=== PATIENT | female | born 1945 | race Hispanic/Latino ===

== ENCOUNTER → 2017-06-05 | Outpatient (CLI) | payer OTHER | END | disposition home or self-care (01) | LOC: RAH 08:47 | PROVIDERS: ATTEND Internal Medicine | DX: Z12.31 Encounter for screening mammogram for malignant neoplasm of breast (principal) | CPT/HCPCS: 77067 ==

== ENCOUNTER → 2017-07-12 | Outpatient (CLI) | payer OTHER | END | disposition home or self-care (01) | LOC: RAH 07:52 | PROVIDERS: ATTEND Internal Medicine Gastroenterology | DX: R10.13 Epigastric pain (principal); Z90.49 Acquired absence of other specified parts of digestive tract | CPT/HCPCS: 76700 ==

== ENCOUNTER → 2018-02-13 | Outpatient (CLI) | payer OTHER | END | disposition home or self-care (01) | LOC: RAH 13:08 | PROVIDERS: ATTEND Family Medicine | DX: R92.8 Other abnormal and inconclusive findings on diagnostic imaging of breast (principal) | CPT/HCPCS: 76641; 77065 ==

== ENCOUNTER → 2018-04-03 | Outpatient (CLI) | payer OTHER | END | disposition home or self-care (01) | LOC: RAH 08:43 | PROVIDERS: ATTEND Internal Medicine Gastroenterology | DX: K76.89 Other specified diseases of liver (principal); Z90.49 Acquired absence of other specified parts of digestive tract | CPT/HCPCS: 76700 ==

== ENCOUNTER → 2018-06-09 | Outpatient (CLI) | payer OTHER | END | disposition home or self-care (01) | LOC: RAH 08:30 | PROVIDERS: ATTEND Family Medicine | DX: Z12.31 Encounter for screening mammogram for malignant neoplasm of breast (principal) | CPT/HCPCS: 77067 ==

== ENCOUNTER → 2018-07-14 | Outpatient (CLI) | payer OTHER | END | disposition home or self-care (01) | LOC: RAH 12:54 | PROVIDERS: ATTEND Urology | DX: R31.29 Other microscopic hematuria (principal); N32.89 Other specified disorders of bladder | CPT/HCPCS: 76770 ==

== ENCOUNTER 2019-06-07 20:28 | Emergency (ER) | payer OTHER | END 2019-06-07 21:55 | disposition home or self-care (01) | LOC: EDH 20:28 | DX: T14.8XXA Other injury of unspecified body region, initial encounter (principal); E78.5 Hyperlipidemia, unspecified; I10 Essential (primary) hypertension; Z90.49 Acquired absence of other specified parts of digestive tract; Z90.710 Acquired absence of both cervix and uterus; X58.XXXA Exposure to other specified factors, initial encounter; Y93.89 Activity, other specified; Y92.098 Other place in other non-institutional residence as the place of occurrence of the external cause; Y99.8 Other external cause status | CPT/HCPCS: 99281 ==

== ENCOUNTER → 2019-06-10 | Outpatient (CLI) | payer OTHER | END | disposition home or self-care (01) | LOC: RAH 08:17 | PROVIDERS: ATTEND Family Medicine | DX: Z12.31 Encounter for screening mammogram for malignant neoplasm of breast (principal) | CPT/HCPCS: 77067 ==

== ENCOUNTER 2020-03-19 14:05 | Observation (INO) | payer OTHER ==
[~2020-03-19] VITALS: Ht 160 cm; Wt 66.8 kg
[2020-03-19] MEDS ORDERED: ASPIRIN 325 MG TABLET ONE (14:46)
[2020-03-19 15:07] LABS: BASOPHILS % (AUTO) 0.6 % (0.0-5.0); EOSINOPHILS % (AUTO) 1.7 % (0.0-8.0); HEMATOCRIT 37.4 % (36-48); LYMPHOCYTES % (AUTO) 21.6 % (21.0-51.0); MEAN CORPUSCULAR HEMOGLOBIN 31.2 pg (27.0-33.0); MEAN CORPUSCULAR HGB CONC 34.8 g/dL (32.0-36.0); MEAN CORPUSCULAR VOLUME 89.7 fL (79-99); PLATELET COUNT (AUTO) 407 K/uL (130-400); RED BLOOD CELL COUNT(AUTO) 4.17 MIL/uL (4.00-5.50); RED CELL DISTRIBUTION WIDTH 13.2 % (11.0-15.5); WHITE BLOOD COUNT (AUTO) 7.1 K/uL (4.8-10.8)
[2020-03-19] MEDS ORDERED: NITROGLYCERIN 1GM/1 INCH PACKET TD ONE (15:13)
[2020-03-19 15:16] LABS: CREATININE 0.7 mg/dL (0.5-1.5); POTASSIUM 3.6 mmol/L (3.5-5.1)
[2020-03-19 15:18] LABS: INR 0.93 (0.85-1.15); PARTIAL THROMBOPLASTIN TIME 29.5 SEC (26.3-35.5); PROTHROMBIN TIME 10.1 SEC (9.6-11.6)
[2020-03-19 15:20] LABS: ALBUMIN 3.5 g/dL (3.5-5.0); BILIRUBIN,TOTAL 0.2 mg/dL (0.2-1.0)
[2020-03-19] MEDS ORDERED: NITROGLYCERIN 0.4 MG SL TAB SL PRN (18:00)
[2020-03-19] MEDS ORDERED: ACETAMINOPHEN 325 MG TAB PO PRN (18:00)
[2020-03-19] MEDS ORDERED: ONDANSETRON HCL 4 MG/2 ML VIAL IVP PRN (18:00)
[2020-03-19] MEDS ORDERED: ACETAMINOPHEN 325 MG TAB ONE (19:38)
--- NOTE | 2020-03-19 20:05 | NUR ---
ADMISSION ARRIVED TO ROOM 408 VIA STRETCHER WITH ER NURSE. PT AAOx4. DENIES CHEST PAIN OR DISCOMFORT. CALL LIGHT WITHIN REACH. RAILS UP x2. LIST OF MEDICATIONS PROVIDED.
[2020-03-19 20:20] VITALS: BP 152/80
[2020-03-19] MEDS ORDERED: MIRT15TA6 PO (21:01)
[2020-03-19] MEDS ORDERED: LOSA50TA64 PO (21:02)
[2020-03-19] MEDS ORDERED: ATOR40TA69 PO (21:03)
[2020-03-19] MEDS ORDERED: ESOM20CA31 PO (21:04)
[2020-03-19] MEDS ORDERED: FAMO20TA8 PO (21:05)
[2020-03-19] MEDS ORDERED: MULT-1258 PO (21:05)
[2020-03-19] MEDS ORDERED: METO10TA3 PO (21:07)
[2020-03-19] MEDS ORDERED: AMLO-258 PO (21:08)
[2020-03-20 00:01] VITALS: BP 114/64
[2020-03-20 04:10] VITALS: BP 112/64
[2020-03-20 06:06] LABS: HEMATOCRIT 34.5 % (36-48); MEAN CORPUSCULAR HEMOGLOBIN 30.7 pg (27.0-33.0); MEAN CORPUSCULAR HGB CONC 34.2 g/dL (32.0-36.0); MEAN CORPUSCULAR VOLUME 89.8 fL (79-99); RED BLOOD CELL COUNT(AUTO) 3.84 MIL/uL (4.00-5.50); RED CELL DISTRIBUTION WIDTH 13.3 % (11.0-15.5); WHITE BLOOD COUNT (AUTO) 5.2 K/uL (4.8-10.8)
[2020-03-20 06:21] LABS: CREATININE 0.7 mg/dL (0.5-1.5)
[2020-03-20 07:31] VITALS: BP 130/76
[2020-03-20] MEDS: ATORVASTATIN CALCIUM 40 MG TABLET PO SCH (08:34)
[2020-03-20] MEDS: MULTIVITAMIN WITH MINERALS TABLET PO SCH (08:34)
[2020-03-20] MEDS: LOSARTAN 50 MG TABLET PO SCH (08:34)
[2020-03-20] MEDS: AMLODIPINE BESYLATE 5 MG TAB PO SCH (08:34)
[2020-03-20] MEDS: FAMOTIDINE 20MG TAB 20 MG TAB PO SCH ×2 (08:35→20:57)
[2020-03-20] MEDS ORDERED: PANTOPRAZOLE SODIUM 40 MG TABLET.DR PO SCH (09:00)
[2020-03-20 11:53] VITALS: BP 132/71
[2020-03-20] MEDS: PANTOPRAZOLE SODIUM 40 MG TABLET.DR PO SCH ×2 (13:30→20:57)
[2020-03-20] MEDS ORDERED: FLUOXETINE HCL 10 MG CAPSULE PO SCH (14:30)
[2020-03-20 15:35] VITALS: BP 121/69
[2020-03-20] MEDS ORDERED: METOCLOPRAMIDE 10 MG TABLET PO SCH (17:00)
[2020-03-20 19:22] LABS: APPEARANCE,URINE SL CLOUDY (CLEAR); BILIRUBIN,URINE NEGATIVE (NEGATIVE); COLOR,URINE YELLOW (YELLOW); GLUCOSE, URINE (UA) NEGATIVE (NEGATIVE); KETONES,URINE NEGATIVE (NEGATIVE); LEUKOCYTE ESTERASE ,URINE NEGATIVE (NEGATIVE); NITRATE,URINE NEGATIVE (NEGATIVE); OCCULT BLOOD,URINE TRACE-INTACT (NEGATIVE); PH,URINE 7.5 (5.0-8.0); PROTEIN,URINE NEGATIVE (NEGATIVE); UROBILINOGEN,URINE 0.2 mg/dL (0.2-1.0)
[2020-03-20 20:00] VITALS: BP 126/71
[2020-03-20 20:08] LABS: BACTERIA,URINE Rare /HPF (None Seen); SQUAMOUS EPITHELIAL CELL,UR Rare /HPF (0-2); WBC,URINE 0-1 /HPF (0-1)
[2020-03-20 20:09] LABS: AMORPHOUS SEDIMENT,UR Few /LPF (None Seen)
[2020-03-20] MEDS ORDERED: MIRTAZAPINE 15 MG TABLET PO SCH (21:00)
[2020-03-21] VITALS: BP 120/63
[2020-03-21 03:27] VITALS: BP 121/69
[2020-03-21 07:30] VITALS: BP 129/82
[2020-03-21] MEDS: LOSARTAN 50 MG TABLET PO SCH (08:59)
[2020-03-21] MEDS: PANTOPRAZOLE SODIUM 40 MG TABLET.DR PO SCH (08:59)
[2020-03-21] MEDS: MULTIVITAMIN WITH MINERALS TABLET PO SCH (08:59)
[2020-03-21] MEDS: FAMOTIDINE 20MG TAB 20 MG TAB PO SCH (08:59)
[2020-03-21] MEDS ORDERED: ASPIRIN 81MG TAB.CHEW PO SCH (09:00)
[2020-03-21] MEDS ORDERED: FLUOXETINE HCL 10 MG CAPSULE PO SCH (09:00)
[2020-03-21] MEDS: AMLODIPINE BESYLATE 5 MG TAB PO SCH (09:00)
[2020-03-21] MEDS ORDERED: POLYETHYLENE GLYCOL 3350 17 GM POWD.PACK PO SCH (09:00)
[2020-03-21] MEDS: ATORVASTATIN CALCIUM 40 MG TABLET PO SCH (09:00)
[2020-03-21] MEDS ORDERED: NAPR-1113 PO (09:15)
[2020-03-21 11:00] VITALS: BP 134/76
[2020-03-21] MEDS ORDERED: IOHEXOL-350 75 ML VIAL IV ONE (11:05)
--- NOTE | 2020-03-21 13:39 | NUR ---
CHART REVIEWED, NOTE MADE OF COMMENT BY CARDIOLOGY THAT PATIENT MAY BE DISCHARGED HOME. WILL FOLLOW UP FOR DETAILED IA IF PATIENT STAYS FOR FURTHER TREATMENT. NO TRIGGERS TO CM, NO CONCERNS VOICED BY PATIENT OR NURSE Addendum: 03/21/20 at 1341 by AMMY KIDD RN CM Amended: Links added.
[2020-03-21] MEDS ORDERED: PANT40TA54 PO (15:25)
--- NOTE | 2020-03-21 16:00 | NUR ---
note DISCHARGE INSTRUCTIONS GIVEN TO PATIENT AT THIS TIME. VERBALIZED UNDERSTANDING. REFER TO DC SUMMARY FOR DETAILS. NO OTHER PROBLEMS VOICED AT THIS TIME. DENIES CHEST PAIN OR SOB. HAD CT CHEST WITH P.E. PROTOCOL NEGATIVE FOR P.E. BUT DID SHOW MODERATE HIATAL HERNIA. SHE WILL FOLLOW UP WITH PCP REGARDING THESE FINDINGS.
== END 2020-03-21 16:45 | disposition home or self-care (01) ==
LOC: EDH 14:05 → 4BH 17:19
PROVIDERS: ADMIT Internal Medicine Pulmonary Disease; ATTEND Internal Medicine Pulmonary Disease
DX: R07.89 Other chest pain (principal); I10 Essential (primary) hypertension; K44.9 Diaphragmatic hernia without obstruction or gangrene; K21.9 Gastro-esophageal reflux disease without esophagitis; F32.9 Major depressive disorder, single episode, unspecified; M94.0 Chondrocostal junction syndrome [Tietze]; E78.5 Hyperlipidemia, unspecified; E04.1 Nontoxic single thyroid nodule; I25.2 Old myocardial infarction; M79.7 Fibromyalgia; I25.10 Atherosclerotic heart disease of native coronary artery without angina pectoris; Z90.89 Acquired absence of other organs; Z90.710 Acquired absence of both cervix and uterus; Z88.8 Allergy status to other drugs, medicaments and biological substances; Z79.899 Other long term (current) drug therapy
CPT/HCPCS: 36415 ×3; 71045; 71275; 80048; 80053; 81001; 82550; 84443; 84484 ×3; 85025; 85027; 85378; 85610; 85730; 93005 ×2; 93306; 99285; G0378 ×8; Q9967

== ENCOUNTER 2021-09-15 07:13 | Emergency (ER) | payer OTHER ==
[~2021-09-15] VITALS: Ht 160 cm; Wt 68.5 kg
[~2021-09-15 07:13] MED LIST: AMLO-258 PO; LOSA50TA64 PO; METO10TA3 PO; MIRT-22 PO; MULT-1258 PO; NAPR-1113 PO; PANT40TA54 PO
[2021-09-15] MEDS ORDERED: ONDANSETRON 4MG INJ IVP SCH (07:30)
[2021-09-15] MEDS ORDERED: PANTOPRAZOLE 40 MG/VIAL IVP SCH (07:30)
[2021-09-15] MEDS ORDERED: PANTOPRAZOLE 40 MG/VIAL ONE (07:32)
[2021-09-15] MEDS ORDERED: ONDANSETRON 4MG INJ ONE (07:32)
[2021-09-15 07:42] LABS: BASOPHILS % (AUTO) 0.7 % (0.0-5.0); EOSINOPHILS % (AUTO) 3.4 % (0.0-8.0); HEMATOCRIT 36.7 % (36-48); LYMPHOCYTES % (AUTO) 29.1 % (21.0-51.0); MEAN CORPUSCULAR HEMOGLOBIN 32.1 pg (27.0-33.0); MEAN CORPUSCULAR HGB CONC 36.2 g/dL (32.0-36.0); MEAN CORPUSCULAR VOLUME 88.6 fL (79-99); NEUTROPHILS % (AUTO) 58.6 % (40.0-77.0); PLATELET COUNT (AUTO) 268 K/uL (130-400); RED BLOOD CELL COUNT(AUTO) 4.14 MIL/uL (4.00-5.50); RED CELL DISTRIBUTION WIDTH 12.8 % (11.0-15.5); WHITE BLOOD COUNT (AUTO) 4.4 K/uL (4.8-10.8)
[2021-09-15 07:46] LABS: ALBUMIN 3.4 g/dL (3.5-5.0); BILIRUBIN,TOTAL 0.4 mg/dL (0.2-1.0); CREATININE 0.7 mg/dL (0.5-1.5); POTASSIUM 4.2 mmol/L (3.5-5.1)
[2021-09-15 08:09] LABS: APPEARANCE,URINE CLEAR (CLEAR); BILIRUBIN,URINE NEGATIVE (NEGATIVE); COLOR,URINE YELLOW (YELLOW); GLUCOSE, URINE (UA) NEGATIVE (NEGATIVE); KETONES,URINE NEGATIVE (NEGATIVE); LEUKOCYTE ESTERASE ,URINE SMALL (NEGATIVE); NITRATE,URINE NEGATIVE (NEGATIVE); OCCULT BLOOD,URINE TRACE-INTACT (NEGATIVE); PROTEIN,URINE NEGATIVE (NEGATIVE); UROBILINOGEN,URINE 0.2 mg/dL (0.2-1.0)
[2021-09-15 08:19] LABS: B-TYPE NATRIURETIC PEPTIDE 9 pg/mL (0-100)
[2021-09-15 08:28] LABS: RBC,URINE 0-1 /HPF (0-1)
[2021-09-15 08:30] LABS: BACTERIA,URINE Few /HPF (None Seen); SQUAMOUS EPITHELIAL CELL,UR 0-2 /HPF (0-2); WBC,URINE 0-1 /HPF (0-1)
[2021-09-15] MEDS ORDERED: KETOROLAC 15MG/ML VIAL (15MG/ML) IV SCH (08:30)
[2021-09-15 08:57] VITALS: BP 108/57
[2021-09-15] MEDS ORDERED: NAPR-1196 PO (09:05)
[2021-09-15] MEDS ORDERED: FAMO20TA8 PO (09:05)
== END 2021-09-15 09:17 | disposition home or self-care (01) ==
LOC: EDH 07:13
DX: R07.89 Other chest pain (principal); I10 Essential (primary) hypertension; I25.2 Old myocardial infarction; Z79.899 Other long term (current) drug therapy; Z98.890 Other specified postprocedural states
CPT/HCPCS: 36415; 71045; 80053; 81001; 83880; 84484; 85025; 85378; 93005; 96374; 96375; 99285; C9113; J1885; J2405

== ENCOUNTER 2021-11-07 10:33 | Emergency (ER) | payer OTHER ==
[~2021-11-07] VITALS: Ht 160 cm; Wt 67.1 kg
[~2021-11-07 10:33] MED LIST changes: +FAMO20TA8 PO; +NAPR-1196 PO
[2021-11-07 11:29] LABS: APPEARANCE,URINE Clear (CLEAR); BILIRUBIN,URINE Negative (NEGATIVE); COLOR,URINE Yellow (YELLOW); GLUCOSE, URINE (UA) Negative (NEGATIVE); KETONES,URINE Negative (NEGATIVE); OCCULT BLOOD,URINE Negative (NEGATIVE); PROTEIN,URINE Negative (NEGATIVE); UROBILINOGEN,URINE 0.2 mg/dL (0.2-1.0)
[2021-11-07 11:30] LABS: LEUKOCYTE ESTERASE ,URINE Negative (NEGATIVE); NITRATE,URINE Negative (NEGATIVE)
[2021-11-07 11:45] LABS: BASOPHILS % (AUTO) 0.2 % (0.0-5.0); EOSINOPHILS % (AUTO) 0.6 % (0.0-8.0); HEMATOCRIT 40.3 % (36-48); LYMPHOCYTES % (AUTO) 16.8 % (21.0-51.0); MEAN CORPUSCULAR HEMOGLOBIN 32.4 pg (27.0-33.0); MEAN CORPUSCULAR HGB CONC 36.2 g/dL (32.0-36.0); MEAN CORPUSCULAR VOLUME 89.6 fL (79-99); MONOCYTES % (AUTO) 8.4 % (3.0-13.0); NEUTROPHILS % (AUTO) 73.5 % (40.0-77.0); PLATELET COUNT (AUTO) 257 K/uL (130-400); RED CELL DISTRIBUTION WIDTH 14.2 % (11.0-15.5); WHITE BLOOD COUNT (AUTO) 8.4 K/uL (4.8-10.8)
[2021-11-07 11:56] LABS: CARBON DIOXIDE 26 mmol/L (21-32); CHLORIDE 99 mmol/L (101-111); CREATININE 0.6 mg/dL (0.5-1.5); GLOMERULAR FILTR. RATE CALC 103 mL/min (>60); GLUCOSE,RANDOM 108 mg/dL (70-105); POTASSIUM 4.3 mmol/L (3.5-5.1); SODIUM SERUM 134 mmol/L (136-145); UREA NITROGEN, BLOOD 14 mg/dL (7-18)
[2021-11-07 12:00] LABS: ALANINE AMINOTRANSFERASE 18 U/L (12-78); ALBUMIN 3.5 g/dL (3.5-5.0); ASPARTATE AMINOTRANSFERASE 15 U/L (10-37); BILIRUBIN,TOTAL 0.5 mg/dL (0.2-1.0); CREATINE KINASE, TOTAL 38 U/L (21-232); TOTAL PROTEIN, SERUM 7.5 g/dL (6.0-8.3)
[2021-11-07 12:21] LABS: ACETAMINOPHEN < 1 mcg/mL (10-30); SALICYLATE < 2.8 mg/dL (2.8-20.0)
[2021-11-07 13:34] LABS: AMPHET/METH SCREEN,URINE NEGATIVE (NEGATIVE); BARBITURATE SCREEN, URINE NEGATIVE (NEGATIVE); BENZODIAZEPINES SCREEN,URINE NEGATIVE (NEGATIVE); CANNABINOID SCREEN,URINE NEGATIVE (NEGATIVE); COCAINE SCREEN,URINE NEGATIVE (NEGATIVE); OPIATE SCREEN,URINE NEGATIVE (NEGATIVE); PHENCYCLIDINE SCREEN,URINE NEGATIVE (NEGATIVE)
[2021-11-07] MEDS ORDERED: HYDROXYZINE 25 MG TABLET ONE (14:41)
[2021-11-07] MEDS ORDERED: HYDR25CA PO (14:41)
[2021-11-07 14:45] VITALS: BP 126/73
[2021-11-07] MEDS ORDERED: HYDROXYZINE 25 MG TABLET PO ONE (15:00)
[2021-11-07] MEDS ORDERED: HYDROXYZINE 100MG/2ML VIAL IM SCH (15:00)
== END 2021-11-07 14:56 | disposition home or self-care (01) ==
LOC: EDH 10:33
DX: F41.9 Anxiety disorder, unspecified (principal); F32.A Depression, unspecified; K21.9 Gastro-esophageal reflux disease without esophagitis; I10 Essential (primary) hypertension; Z88.8 Allergy status to other drugs, medicaments and biological substances; Z79.899 Other long term (current) drug therapy; Z90.49 Acquired absence of other specified parts of digestive tract; Z98.890 Other specified postprocedural states
CPT/HCPCS: 36415; 80053; 80305; 81003; 82550; 85025; 99283; G0481; J3410

== ENCOUNTER 2022-02-12 07:05 | Emergency (ER) | payer OTHER ==
[~2022-02-12] VITALS: Ht 160 cm; Wt 66.7 kg
[~2022-02-12 07:05] MED LIST changes: +HYDR25CA PO
[2022-02-12 07:35] LABS: BASOPHILS % (AUTO) 0.5 % (0.0-5.0); EOSINOPHILS % (AUTO) 0.6 % (0.0-8.0); HEMATOCRIT 41.8 % (36-48); LYMPHOCYTES % (AUTO) 17.2 % (21.0-51.0); MEAN CORPUSCULAR HEMOGLOBIN 32.1 pg (27.0-33.0); MEAN CORPUSCULAR HGB CONC 36.1 g/dL (32.0-36.0); MEAN CORPUSCULAR VOLUME 88.9 fL (79-99); MONOCYTES % (AUTO) 7.4 % (3.0-13.0); NEUTROPHILS % (AUTO) 73.8 % (40.0-77.0); PLATELET COUNT (AUTO) 232 K/uL (130-400); RED CELL DISTRIBUTION WIDTH 12.8 % (11.0-15.5); WHITE BLOOD COUNT (AUTO) 8.5 K/uL (4.8-10.8)
[2022-02-12 07:45] LABS: INR 0.94 (0.85-1.15); PROTHROMBIN TIME 10.3 SEC (9.6-11.6)
[2022-02-12 07:46] LABS: PARTIAL THROMBOPLASTIN TIME 28.8 SEC (26.3-35.5)
[2022-02-12 08:00] LABS: POTASSIUM 3.6 mmol/L (3.5-5.1); TOTAL PROTEIN, SERUM 7.4 g/dL (6.0-8.3)
[2022-02-12 08:05] LABS: ALBUMIN 3.3 g/dL (3.5-5.0); CREATININE 0.8 mg/dL (0.5-1.5)
[2022-02-12 08:23] LABS: B-TYPE NATRIURETIC PEPTIDE 45 pg/mL (0-100)
[2022-02-12] MEDS ORDERED: DICYCLOMINE HCL 10 MG/5 ML ML PO ONE (08:30)
[2022-02-12] MEDS ORDERED: LIDOCAINE HCL 2% VISCOUS 15 ML UDCUP PO ONE (08:30)
[2022-02-12] MEDS ORDERED: MAG/ALUM/SIMETH 30 ML UDCUP PO ONE (08:30)
[2022-02-12 08:46] LABS: APPEARANCE,URINE CLEAR (CLEAR); BILIRUBIN,URINE NEGATIVE (NEGATIVE); COLOR,URINE LIGHT-YELLOW (YELLOW); GLUCOSE, URINE (UA) NEGATIVE (NEGATIVE); KETONES,URINE NEGATIVE (NEGATIVE); LEUKOCYTE ESTERASE ,URINE NEGATIVE Leu/uL (NEGATIVE); NITRATE,URINE NEGATIVE (NEGATIVE); OCCULT BLOOD,URINE NEGATIVE (NEGATIVE); PH,URINE 7.5 (5.0-8.0); PROTEIN,URINE NEGATIVE (NEGATIVE); UROBILINOGEN,URINE 0.2 mg/dL (0.2-1.0)
[2022-02-12] MEDS ORDERED: FAMO20TA8 PO (09:39)
[2022-02-12 10:41] VITALS: BP 117/59
== END 2022-02-12 10:57 | disposition home or self-care (01) ==
LOC: EDH 07:05
DX: K21.9 Gastro-esophageal reflux disease without esophagitis (principal); E78.00 Pure hypercholesterolemia, unspecified; G47.30 Sleep apnea, unspecified; I10 Essential (primary) hypertension; I25.2 Old myocardial infarction; Z79.1 Long term (current) use of non-steroidal anti-inflammatories (NSAID); Z79.899 Other long term (current) drug therapy
CPT/HCPCS: 36415; 71045; 80053; 80061; 81003; 82550; 83880; 84484; 85025; 85610; 85730; 93005

== ENCOUNTER → 2022-06-07 | Outpatient (CLI) | payer OTHER | END | disposition home or self-care (01) | LOC: RAH 07:38 | PROVIDERS: ATTEND Family Medicine | DX: Z12.31 Encounter for screening mammogram for malignant neoplasm of breast (principal) | CPT/HCPCS: 77067 ==

== ENCOUNTER 2022-09-23 16:39 | Emergency (ER) | payer OTHER ==
[~2022-09-23] VITALS: Ht 160 cm; Wt 67.1 kg
[2022-09-23 17:12] VITALS: BP 161/73
== END 2022-09-23 17:58 | disposition home or self-care (01) ==
LOC: EDH 16:39
DX: I10 Essential (primary) hypertension (principal); E78.00 Pure hypercholesterolemia, unspecified; K21.9 Gastro-esophageal reflux disease without esophagitis; Z90.49 Acquired absence of other specified parts of digestive tract; Z79.899 Other long term (current) drug therapy; Z90.710 Acquired absence of both cervix and uterus
CPT/HCPCS: 93005

== ENCOUNTER → 2022-10-15 | Outpatient (CLI) | payer OTHER ==
[2022-10-15 12:20] LABS: ALBUMIN 3.5 g/dL (3.5-5.0); CREATININE 0.7 mg/dL (0.5-1.5); POTASSIUM 3.7 mmol/L (3.5-5.1); TOTAL PROTEIN, SERUM 7.4 g/dL (6.0-8.3)
== END | disposition home or self-care (01) ==
LOC: LAB 08:06
PROVIDERS: ATTEND Internal Medicine Cardiovascular Disease
DX: I25.2 Old myocardial infarction (principal); E78.5 Hyperlipidemia, unspecified; Z79.899 Other long term (current) drug therapy
CPT/HCPCS: 36415; 80053; 80061; 82306

== ENCOUNTER → 2023-04-03 | Outpatient (CLI) | payer OTHER | END | disposition home or self-care (01) | LOC: RAH 14:54 | PROVIDERS: ATTEND Internal Medicine Cardiovascular Disease | DX: Z13.6 Encounter for screening for cardiovascular disorders (principal) | CPT/HCPCS: 75571 ==

== ENCOUNTER → 2023-06-07 | Outpatient (CLI) | payer OTHER | END | disposition home or self-care (01) | LOC: RAH 08:43 | PROVIDERS: ATTEND Internal Medicine Gastroenterology | DX: K44.9 Diaphragmatic hernia without obstruction or gangrene (principal); R10.10 Upper abdominal pain, unspecified; K21.9 Gastro-esophageal reflux disease without esophagitis; R11.2 Nausea with vomiting, unspecified | CPT/HCPCS: 74240 ==

== ENCOUNTER → 2023-06-10 | Outpatient (CLI) | payer OTHER | END | disposition home or self-care (01) | LOC: RAH 07:49 | PROVIDERS: ATTEND Family Medicine | DX: Z12.31 Encounter for screening mammogram for malignant neoplasm of breast (principal) | CPT/HCPCS: 77067 ==

== ENCOUNTER → 2023-07-01 | Outpatient (CLI) | payer OTHER | END | disposition home or self-care (01) | LOC: RAH 14:03 | PROVIDERS: ATTEND Family Medicine | DX: M47.27 Other spondylosis with radiculopathy, lumbosacral region (principal) | CPT/HCPCS: 72100 ==

== ENCOUNTER 2023-08-07 07:25 | Emergency (ER) | payer OTHER ==
[~2023-08-07] VITALS: Ht 160 cm; Wt 70.3 kg
[2023-08-07] MEDS: MECLIZINE HCL 25 MG TABLET PO ONE (08:11)
[2023-08-07] MEDS: ONDANSETRON 4MG INJ IVP ONE (08:11)
[2023-08-07 08:34] LABS: BASOPHILS # (AUTO) 0.03 K/uL (0.00-0.20); BASOPHILS % (AUTO) 0.7 % (0.0-5.0); EOSINOPHILS # (AUTO) 0.09 K/uL (0.00-0.70); HEMATOCRIT 40.8 % (36-48); IMMATURE GRANULOCYTE ABSOLUTE 0.02 K/uL (0-1); LYMPHOCYTES # (AUTO) 0.9 K/uL (1.0-4.8); LYMPHOCYTES % (AUTO) 20.4 % (21.0-51.0); MEAN CORPUSCULAR HEMOGLOBIN 32.7 pg (27.0-33.0); MEAN CORPUSCULAR HGB CONC 35.8 g/dL (32.0-36.0); MEAN CORPUSCULAR VOLUME 91.5 fL (79-99); MONOCYTES # (AUTO) 0.4 K/uL (0.1-1.0); MONOCYTES % (AUTO) 9.4 % (3.0-13.0); NEUTROPHILS # (AUTO) 3.1 K/uL (1.8-7.7); NEUTROPHILS % (AUTO) 67.1 % (40.0-77.0); PLATELET COUNT (AUTO) 260 K/uL (130-400); RED BLOOD CELL COUNT(AUTO) 4.46 MIL/uL (4.00-5.50); WHITE BLOOD COUNT (AUTO) 4.6 K/uL (4.8-10.8)
[2023-08-07 08:46] LABS: CREATININE 0.7 mg/dL (0.5-1.5); POTASSIUM 3.9 mmol/L (3.5-5.1)
[2023-08-07 08:48] LABS: INR <= 0.93 (0.85-1.15); PROTHROMBIN TIME 10.6 SEC (9.6-11.6)
[2023-08-07 08:51] LABS: ALBUMIN 3.2 g/dL (3.5-5.0); BILIRUBIN,TOTAL 0.5 mg/dL (0.2-1.0); TOTAL PROTEIN, SERUM 7.1 g/dL (6.0-8.3)
[2023-08-07 09:02] LABS: B-TYPE NATRIURETIC PEPTIDE 40 pg/mL (0-100)
[2023-08-07] MEDS: ASPIRIN 81MG CHEW TAB PO ONE (09:37)
[2023-08-07 10:47] VITALS: RESP 16; O2SAT 98
[2023-08-07 11:02] VITALS: BP 137/70; PULSE 63
== END 2023-08-07 11:32 | disposition home or self-care (01) ==
LOC: EDH 07:25
DX: R07.89 Other chest pain (principal); K44.9 Diaphragmatic hernia without obstruction or gangrene; K21.9 Gastro-esophageal reflux disease without esophagitis; I25.10 Atherosclerotic heart disease of native coronary artery without angina pectoris; E78.00 Pure hypercholesterolemia, unspecified; I25.2 Old myocardial infarction; Z79.899 Other long term (current) drug therapy; Z90.49 Acquired absence of other specified parts of digestive tract; Z90.710 Acquired absence of both cervix and uterus
CPT/HCPCS: 99285; 96374; 71045; 84484 ×2; 80053; 83880; 85025; 85610; 36415; 93005; J2405

== ENCOUNTER → 2024-02-18 | Outpatient (CLI) | payer OTHER | END | disposition home or self-care (01) | LOC: RAH 10:56 | PROVIDERS: ATTEND Surgery | DX: K30 Functional dyspepsia (principal); K44.9 Diaphragmatic hernia without obstruction or gangrene; K21.9 Gastro-esophageal reflux disease without esophagitis; R14.0 Abdominal distension (gaseous) | CPT/HCPCS: 78264; A9541 ==

== ENCOUNTER 2024-05-03 08:14 | Emergency (ER) | payer OTHER ==
[~2024-05-03] VITALS: Ht 160 cm; Wt 69.9 kg
[2024-05-03 08:20] VITALS: TEMP 97.5
[2024-05-03 08:38] LABS: BASOPHILS # (AUTO) 0.04 K/uL (0.00-0.20); BASOPHILS % (AUTO) 0.7 % (0.0-5.0); EOSINOPHILS # (AUTO) 0.11 K/uL (0.00-0.70); EOSINOPHILS % (AUTO) 1.8 % (0.0-8.0); HEMATOCRIT 40.2 % (36-48); IMMATURE GRANULOCYTE ABSOLUTE 0.03 K/uL (0-1); LYMPHOCYTES # (AUTO) 1.3 K/uL (1.0-4.8); LYMPHOCYTES % (AUTO) 20.7 % (21.0-51.0); MEAN CORPUSCULAR HEMOGLOBIN 32.5 pg (27.0-33.0); MEAN CORPUSCULAR HGB CONC 35.8 g/dL (32.0-36.0); MEAN CORPUSCULAR VOLUME 90.7 fL (79-99); MONOCYTES # (AUTO) 0.5 K/uL (0.1-1.0); MONOCYTES % (AUTO) 8.3 % (3.0-13.0); NEUTROPHILS # (AUTO) 4.1 K/uL (1.8-7.7); PLATELET COUNT (AUTO) 233 K/uL (130-400); RED BLOOD CELL COUNT(AUTO) 4.43 MIL/uL (4.00-5.50); RED CELL DISTRIBUTION WIDTH 12.6 % (11.0-15.5); WHITE BLOOD COUNT (AUTO) 6.1 K/uL (4.8-10.8)
[2024-05-03 08:49] LABS: CREATININE 0.7 mg/dL (0.5-1.0); POTASSIUM 3.6 mmol/L (3.5-5.1)
[2024-05-03 08:51] LABS: INR 0.97 (0.85-1.15); PROTHROMBIN TIME 10.5 SEC (9.6-11.6)
[2024-05-03 08:53] LABS: PARTIAL THROMBOPLASTIN TIME 29.9 SEC (26.3-35.5)
[2024-05-03 08:54] LABS: MAGNESIUM 1.9 mg/dL (1.80-2.40)
[2024-05-03 09:01] VITALS: BP 134/50; PULSE 51; RESP 12; O2SAT 96
--- NOTE | 2024-05-03 09:01 | NUR ---
ASSUMED CARE AT THIS TIME
--- NOTE | 2024-05-03 09:03 | NUR ---
AT THIS TIME DENIES CHEST DISCOMFORT
--- NOTE | 2024-05-03 09:04 | HMCIMG ---
CHEST 1VW REASON: chest COMPARISON: 08/07/2023 FINDINGS: Single view of the chest was obtained. Lungs are clear. Heart size is normal. There is no pulmonary vascular congestion. Mediastinum and bony thorax appear unremarkable. IMPRESSION: 1. Normal single view chest x-ray.
[2024-05-03 09:17] LABS: B-TYPE NATRIURETIC PEPTIDE 47 pg/mL (0-100)
--- NOTE | 2024-05-03 09:25 | ERN ---
General Chief Complaint: Chest Pain Stated Complaint: CHEST PAIN Time Seen by MD: 08:16 Source: patient History of Present Illness Initial Comments Patient is an 79-year-old female coming in to be evaluated for chest pressure. Patient states he has a of GERD secondary to hiatal hernia in his pending surgery. States that she started feeling discomfort in her left upper abdominal region decided to come in to be evaluated. Allergies: Uncoded Allergies: DIURETICS (Allergy, Unknown, 05/03/24) Home Meds Active Scripts Famotidine (Famotidine) 20 Mg Tablet, 20 MG PO BID for 30 Days, #60 TAB Prov:KASSANDRA DICKENS MD 02/12/22 Hydroxyzine Pamoate (Vistaril) 25 Mg Capsule, 25 MG PO BID for 5 Days, #10 CAP Prov:KASSANDRA DICKENS MD 11/07/21 Naproxen (Naproxen) 250 Mg Tablet, 250 MG PO BID for 7 Days, #14 TAB Prov:KASSANDRA DICKENS MD 09/15/21 Famotidine (Famotidine) 20 Mg Tablet, 20 MG PO BID for 30 Days, #60 TAB Prov:KASSANDRA DICKENS MD 09/15/21 Pantoprazole Sodium (Pantoprazole Sodium) 40 Mg Tablet.dr, 40 MG PO bid for for 7 days then daily for 7 Days, #37 TAB Prov:NAUN IBARRACNDemar 03/21/20 Naproxen Sodium (Naproxen Sodium ER) 375 Mg Tbmp.24hr, 375 MG PO BID for 3 Days, #15 TAB.SR 1 Refill Prov:MILLY BOYKIN MD 03/21/20 Reported Medications Amlodipine Besylate (Amlodipine Besylate) 10 Mg Tablet, 10 MG PO DAILY, TAB 03/19/20 Metoclopramide HCl (Metoclopramide HCl) 10 Mg Tablet, 10 MG PO AD, TAB 03/19/20 Multivits-Min/FA/Lycopene/Lut (Centrum Silver Tablet) 1 Each Tablet, 1 EACH PO DAILY, TAB 03/19/20 Losartan Potassium (Losartan Potassium) 50 Mg Tablet, 50 MG PO DAILY, TAB 03/19/20 Mirtazapine (Mirtazapine) 15 Mg Tablet, 15 MG PO HS, TAB 03/19/20 Past Medical History Past Medical History: Heart Disease, Hypertension, CO Past Surgical History: Hysterectomy, Cholecystectomy Surgical History Other: THYROID NODULE REMOVED Social History Social History: Negative ROS Dictation CONSTITUTIONAL: No chills, no fever, no weakness, no diaphoresis, no malaise. HEAD/FACE: No signs of trauma. EENT: No eye pain, no blurred vision, no tearing, no double vision, no ear pain, no ear discharge, no nose pain, no nasal congestion, no throat pain, no throat swelling, no mouth pain. RESPIRATORY: No cough, no orthopnea, no SOB, no stridor, no wheezing. CARDIOVASCULAR: No chest pain, no edema, no palpitations, no syncope. GASTROINTESTINAL/ABDOMINAL: abdominal pain, no constipation, no diarrhea, no nausea, no vomiting. GENITOURINARY: No abnormal discharge, no dysuria, no frequent urination, no hematuria. No complaints of pain in the genitals. MUSCULOSKELETAL: No back pain, no gout, no joint pain, no joint swelling, no muscle pain, no muscle stiffness, no neck pain. INTEGUMENTARY: No change in color, no change in hair/nails, no dryness, no lesion, no lumps, no rash. NEUROLOGICAL/PSYCH: No anxiety, not depressed, no emotional problem, no headache, no numbness, no pre-existing deficit, no history of seizures, no tremors, no weakness. HEMATOLOGIC/LYMPHATIC: Not anemic, no history of blood clots, no apparent bleeding, no bruising, glands not swollen. All Systems Negative, Except as Noted. Physical Exam Physical Exam Dictation VITAL SIGNS: Reviewed. GENERAL APPEARANCE: Alert, oriented x3, no acute distress, obese. HEAD AND FACE: Non-traumatic. EYES: PERRL, pink conjunctivas, eyelid no trauma, anterior chamber clear. EARS: Pinnas intact and no signs of trauma or erythema. Ear canals clear and no discharge. TMs no erythema. NOSE: No discharge, no bleeding. OROPHARYNX: Mouth normal, teeth no caries, tongue pink. Pharynx clear, no erythema. Tonsils no exudates, no abscesses noted. Mucous membrane moist. NECK: Supple, non-tender, no thyromegaly, no masses, no JVD, no bruits. BREAST: Deferred. CHEST: No tenderness, no crepitus, no paradoxical movement, no retractions. LUNGS: Clear, well-ventilated, symmetric, no rales, no wheezing, no rhonchi, no stridor, good breath sounds bilaterally. HEART: Regular rate, regular rhythm, no murmur, no gallops. VASCULAR: No peripheral edema. ABDOMEN: Soft, positive bowel sounds, nondistended, no guarding, left upper abdominal pressure and palpation, no rebound, no masses no hepatomegaly, no splenomegaly, no Lynn's sign, no hernias. RECTAL: Deferred. GENITAL: Deferred. NEUROLOGICAL: Normal speech, gross motor function intact, gross sensory function intact. MUSCULOSKELETAL: Neck nontender, full range of motion, back nontender, full range of motion. EXTREMITIES: Nontender, full range of motion. SKIN: Color pink, dry, no turgor, no rash, no lacerations, no abrasions, no contusions. LYMPHATICS: Deferred. Results Laboratory and Microbiology Lab and Micro Result Laboratory Tests Test 05/03/24 08:26 05/03/24 09:12 White Blood Count 6.1 K/uL (4.8-10.8) Red Blood Count 4.43 MIL/uL (4.00-5.50) Hemoglobin 14.4 g/dL (12.0-16.0) Hematocrit 40.2 % (36-48) Mean Corpuscular Volume 90.7 fL (79-99) Mean Corpuscular Hemoglobin 32.5 pg (27.0-33.0) Mean Corpuscular Hemoglobin Concent 35.8 g/dL (32.0-36.0) Red Cell Distribution Width 12.6 % (11.0-15.5) Platelet Count 233 K/uL (130-400) Mean Platelet Volume 8.2 fL (7.5-10.5) Immature Granulocyte % (Auto) 0.5 % (0-1) Neutrophils (%) (Auto) 68.0 % (40.0-77.0) Lymphocytes (%) (Auto) 20.7 % (21.0-51.0) L Monocytes (%) (Auto) 8.3 % (3.0-13.0) Eosinophils (%) (Auto) 1.8 % (0.0-8.0) Basophils (%) (Auto) 0.7 % (0.0-5.0) Neutrophils # (Auto) 4.1 K/uL (1.8-7.7) Lymphocytes # (Auto) 1.3 K/uL (1.0-4.8) Monocytes # (Auto) 0.5 K/uL (0.1-1.0) Eosinophils # (Auto) 0.11 K/uL (0.00-0.70) Basophils # (Auto) 0.04 K/uL (0.00-0.20) Absolute Immature Granulocyte (auto 0.03 K/uL (0-1) Nucleated Red Blood Cells 0.0 % (0.0-0.19) Prothrombin Time 10.5 SEC (9.6-11.6) Prothromb Time International Ratio 0.97 (0.85-1.15) Activated Partial Thromboplast Time 29.9 SEC (26.3-35.5) Sodium Level 141 mmol/L (136-145) Potassium Level 3.6 mmol/L (3.5-5.1) Chloride Level 106 mmol/L (101-111) Carbon Dioxide Level 32 mmol/L (21-32) Blood Urea Nitrogen 14 mg/dL (7-18) Creatinine 0.7 mg/dL (0.5-1.0) Glomerular Filtration Rate Calc 87 mL/min (>90) Random Glucose 93 mg/dL (70-105) Total Calcium 8.6 mg/dL (8.5-10.1) Magnesium Level 1.90 mg/dL (1.80-2.40) Total Creatine Kinase 43 U/L (21-232) # Troponin I High Sensitivity 5 ng/L (4-50) B-Type Natriuretic Peptide 47 pg/mL (0-100) Urine Color LIGHT-YELLOW (YELLOW) Urine Appearance CLEAR (CLEAR) Urine pH 7.0 (5.0-8.0) Urine Specific [place] 1.012 (1.001-1.031) Urine Protein NEGATIVE mg/dL (NEGATIVE) Urine Glucose (UA) NEGATIVE mg/dL (NEGATIVE) Urine Ketones NEGATIVE mg/dL (NEGATIVE) Urine Occult Blood NEGATIVE (NEGATIVE) Urine Nitrate NEGATIVE (NEGATIVE) Urine Bilirubin NEGATIVE mg/dL (NEGATIVE) Urine Urobilinogen 0.2 mg/dL (0.2-1.0) Urine Leukocyte Esterase 25 Malik/uL (NEGATIVE) H Urine RBC 0-1 /HPF (0-1) Urine WBC 0-1 /HPF (0-1) Urine Squamous Epithelial Cells RARE /HPF (0-2) Urine Bacteria None /HPF (None Seen) Labs Reviewed?: Yes EKG/XRAY/US/CT/MRI EKG Comment 05/03/2024 time 8:19 a.m. Ventricular rate 55 Sinus rhythm SD [address] wave elevation or depression X-RAY Comment [address] [place] [address] IMAGING REPORT Signed PATIENT: JOVANNI BOYKIN MR#: [id number] : 1945 SEX: F AGE: 79 LOCATION: [facility] ORDER 7 STATUS: [facility] REPORT#: [id number] SERVICE 6 REASON: chest ORDERING PHYSICIAN: KASSANDRA DICKENS MD PROCEDURE: CXR1VW - CHEST 1VW CHEST 1VW REASON: chest COMPARISON: 08/07/2023 FINDINGS: Single view of the chest was obtained. Lungs are clear. Heart size is normal. There is no pulmonary vascular congestion. Mediastinum and bony thorax appear unremarkable. IMPRESSION: 1. Normal single view chest x-ray. DICTATED BY: SHERYL ROLDAN MD DATE: 05/03/24900 ELECTRONICALLY SIGNED BY: SHERYL ROLDAN MD DATE: 05/03/24903 MDM MDM: Differential diagnosis: GERD, H pylori, hiatal hernia, uti 39-year-old female coming in to be evaluated for left upper abdominal discomfort and pressure. Patient does state she has a history of hiatal hernia and GERD. Laboratory workup negative for acute findings. Patient received IV Protonix that feels better patient will discharged with a diagnosis GERD secondary to hiatal hernia. ED Course Orders Procedure Category Date Status Time Cbc With Differential LAB 05/03/24 Complete 08:17 Prothrombin Time With LAB 05/03/24 Complete INR 08:17 B-Type Natriuretic LAB 05/03/24 Complete Peptide 08:17 Chest 1vw RAD 05/03/24 Resulted 08:17 12 Lead Ekg Tracing- EKG 05/03/24 Logged Technical 08:17 Magnesium LAB 05/03/24 Complete 08:17 Creatine Kinase, Total LAB 05/03/24 Complete 08:17 Troponin I High LAB 05/03/24 Complete Sensitivity 08:17 Urinalysis Profile LAB 05/03/24 Complete 08:17 Partial LAB 05/03/24 Complete Thromboplastin Time 08:17 Basic Metabolic Panel LAB 05/03/24 Complete 08:17 Pantoprazole 40mg Inj PHA 05/03/24 Complete (Protonix 40mg Inj 09:30 Current Medications Medications (Trade) Dose Ordered Sig/Carly Route PRN Reason Start Time Stop Time Status Last Admin Dose Admin Pantoprazole Sodium (PROTonix 40MG INJ) 40 mg ONCE ONCE IVP 05/03/24 09:30 05/03/24 09:31 DC 05/03/24 09:30 Vital Signs Date Time Temp Pulse Resp B/P (MAP) Pulse Ox O2 Delivery O2 Flow Rate FiO2 05/03/24 09:01 51 12 134/50 96 Room Air* 0 21 05/03/24 08:20 97.5 90 16 148/73 98 Room Air 0 DX & DISP Disposition: Discharge Departure Impression: Primary Impression: Hiatal hernia Additional Impressions: GERD (gastroesophageal reflux disease), UTI (urinary tract infection) Condition: Stable Scripts Nitrofurantoin Monohyd/M-Cryst (Macrobid 100 mg Capsule) 100 Mg Capsule 1 CAP PO BID for 7 Days, #14 CAP 0 Refills Prov: KASSANDRA DICKENS MD 05/03/24 Additional Instructions: You have been reviewed in the emergency department at [facility] after presenting with chest pain. After considering your history, your risk factors, your EKG and your blood test troponins, have been found to be at very low risk less than (1 in 100) of having a major adverse cardiac event (like heart attack) in the near future. In the " low risk" group, the risks of doing further tests and treatment as the inpatient outweighs the benefits. In many patients in the low risk group for the test of any sort or unnecessary, however he should discuss this further with his general practitioner who will understand the medical and personal backgrounds better. Because we have never declared you" no risk" we would suggest. 1 returning for medical review if you have further episodes of chest pain/arm pain or other concerning symptoms like dizziness, collapse, palpitations or shortness of breath. 2. Following up with your local doctor who will consider the need for further testing and will also ensure that any modifiable risk factors you may have for heart disease are optimally managed. Patient will be discharged in stable condition at the moment discharge patient states , no chest pain Referrals: RENO GAMBINO M.D. (PCP) Time of Disposition: 09:40 KASSANDRA DICKENS MD May 03, 2024 09:25
[2024-05-03 09:27] LABS: APPEARANCE,URINE CLEAR (CLEAR); BILIRUBIN,URINE NEGATIVE (NEGATIVE); COLOR,URINE LIGHT-YELLOW (YELLOW); GLUCOSE, URINE (UA) NEGATIVE (NEGATIVE); KETONES,URINE NEGATIVE (NEGATIVE); LEUKOCYTE ESTERASE ,URINE 25 Leu/uL (NEGATIVE); NITRATE,URINE NEGATIVE (NEGATIVE); OCCULT BLOOD,URINE NEGATIVE (NEGATIVE); PROTEIN,URINE NEGATIVE (NEGATIVE); UROBILINOGEN,URINE 0.2 mg/dL (0.2-1.0)
[2024-05-03] MEDS: PANTOPrazole 40 MG/VIAL IVP ONE (09:30)
[2024-05-03 09:33] LABS: ADD UA MICROSCOPIC YES
[2024-05-03 09:36] LABS: MUCUS,URINE RARE LPF (None Seen); RBC,URINE 0-1 /HPF (0-1); SQUAMOUS EPITHELIAL CELL,UR RARE /HPF (0-2); WBC,URINE 0-1 /HPF (0-1)
[2024-05-03] MEDS ORDERED: NITR100C4 PO (09:40)
--- NOTE | 2024-05-03 17:35 | EKG ---
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
== END 2024-05-03 09:47 | disposition home or self-care (01) ==
LOC: EDH 08:14
DX: K44.9 Diaphragmatic hernia without obstruction or gangrene (principal); K21.9 Gastro-esophageal reflux disease without esophagitis; N39.0 Urinary tract infection, site not specified; I11.9 Hypertensive heart disease without heart failure; Z79.899 Other long term (current) drug therapy; Z90.49 Acquired absence of other specified parts of digestive tract; Z90.710 Acquired absence of both cervix and uterus
CPT/HCPCS: 99285; 96374; 71045; 82550; 83735; 84484; 80048; 83880; 85025; 85610; 85730; 81001; 36415; 93005; J2470

== ENCOUNTER → 2024-06-11 | Outpatient (CLI) | payer OTHER ==
[~2024-06-11] MED LIST changes: +NITR100C4 PO
--- NOTE | 2024-06-12 08:43 | HMCIMG ---
SCREENING MAMMOGRAM REASON: Annual Exam COMPARISON: 06/10/2023 TECHNIQUE: CC and MLO views of the bilateral breasts were performed.CAD was performed as well. FINDINGS: Parenchymal density: There are scattered areas of fibroglandular density. There are no focal mass lesions. There are no pathologic appearing calcifications. There is no evidence of architectural distortion or skin thickening. IMPRESSION: Normal screening mammogram The patient was entered into a reminder system with a target due date for their next mammogram. BI-RADS CATEGORY 1: NEGATIVE Recommend monthly self breast exam as well as annual clinical examination. A negative x-ray should not delay biopsy if a dominant or clinically suspicious mass is present, since 8-10% of cancers are not identified by mammography. Dense breasts particularly, may obscure an underlying neoplasm. Some of these may be detected clinically and therefore, clinical examination is an essential part of breast evaluation.
== END | disposition home or self-care (01) ==
LOC: RAH 12:51
PROVIDERS: ATTEND Family Medicine
DX: Z12.31 Encounter for screening mammogram for malignant neoplasm of breast (principal); R92.323 Mammographic fibroglandular density, bilateral breasts
CPT/HCPCS: 77067

== ENCOUNTER 2024-08-27 17:48 | Emergency (ER) | payer OTHER ==
[~2024-08-27] VITALS: Ht 160 cm; Wt 65.8 kg
[2024-08-27] MEDS ORDERED: DIPH50 PO (18:49)
--- NOTE | 2024-08-27 18:50 | ERN ---
ED Note History of Present Illness Stated Complaint: RASH, BACK AND THROAT PAIN Chief Complaint: Sore Throat Time Seen by MD: 18:28 Time Seen by Midlevel: 18:28 Dictation: The patient Is an 79-year-old female with a history of hypertension who presents to the emergency department with generalized rash that is itching in nature. Reports rash started last night. Patient reports that she has been taking Bactrim for an skin infection in her finger and finished the last medication yesterday. Patient reports that she then developed throat pain and was seen by her primary doctor who tested her for strep and was negative but started her on amoxicillin Which she has not started. Allergies: Uncoded Allergies: DIURETICS (Allergy, Unknown, 05/03/24) Home Meds Active Scripts Nitrofurantoin Monohyd/M-Cryst (Macrobid 100 mg Capsule) 100 Mg Capsule, 1 CAP PO BID for 7 Days, #14 CAP 0 Refills Prov:KASSANDRA DICKENS MD 05/03/24 Famotidine (Famotidine) 20 Mg Tablet, 20 MG PO BID for 30 Days, #60 TAB Prov:KASSANDRA DICKENS MD 02/12/22 Hydroxyzine Pamoate (Vistaril) 25 Mg Capsule, 25 MG PO BID for 5 Days, #10 CAP Prov:KASSANDRA DICKENS MD 11/07/21 Naproxen (Naproxen) 250 Mg Tablet, 250 MG PO BID for 7 Days, #14 TAB Prov:KASSANDRA DICKENS MD 09/15/21 Famotidine (Famotidine) 20 Mg Tablet, 20 MG PO BID for 30 Days, #60 TAB Prov:KASSANDRA DICKENS MD 09/15/21 Pantoprazole Sodium (Pantoprazole Sodium) 40 Mg Tablet.dr, 40 MG PO bid for for 7 days then daily for 7 Days, #37 TAB Prov:NAUN IBARRA AGACNDemar 03/21/20 Naproxen Sodium (Naproxen Sodium ER) 375 Mg Tbmp.24hr, 375 MG PO BID for 3 Days, #15 TAB.SR 1 Refill Prov:MILLY BOYKIN MD 03/21/20 Reported Medications Amlodipine Besylate (Amlodipine Besylate) 10 Mg Tablet, 10 MG PO DAILY, TAB 03/19/20 Metoclopramide HCl (Metoclopramide HCl) 10 Mg Tablet, 10 MG PO AD, TAB 03/19/20 Multivits-Min/FA/Lycopene/Lut (Centrum Silver Tablet) 1 Each Tablet, 1 EACH PO DAILY, TAB 03/19/20 Losartan Potassium (Losartan Potassium) 50 Mg Tablet, 50 MG PO DAILY, TAB 03/19/20 Mirtazapine (Mirtazapine) 15 Mg Tablet, 15 MG PO HS, TAB 03/19/20 Past Medical History Past Medical History: Anxiety, CAD, High Cholesterol, Hypertension Surgical History: Hysterectomy, Cholecystectomy Surgical History Other: THYROID NODULE REMOVED Social History: Negative RN Note Reviewed/Agreed w/PFSH: Yes Review of System Dictation Constitutional: Negative for fever,chills, and weight loss Eyes: Negative for injury, pain,redness, and discharge ENT: Negative for injury,pain or swelling Cardiovascular: Negative for chest pain, palpitations, and edema Respiratory: Negative for shortness of breath, cough, and wheezing, Abdomen/GI: Negative for abdominal pain, nausea, vomiting, diarrhea, and constipation Back: Negative for injury and pain : Negative for injury, bleeding and discharge MS/Extremity: Negative for injury and deformity Skin: Positive for rash Neuro: Negative for headache, weakness, numbness, tingling, and seizure Psych: Negative for suicide ideation, homicidal ideation, and hallucinations Initial Vital Sign VS Vital Signs Date Time Temp Pulse Resp B/P (MAP) Pulse Ox O2 Delivery O2 Flow Rate FiO2 08/27/24 18:27 97.5 68 18 158/74 98 Room Air 0 08/27/24 18:39 21 Physical Exam Dictation Vital Signs reviewed General Appearance: Alert, oriented x 3, no acute distress, well developed, nourished. Head and Face: non-traumatic. Eyes: PERRL, pink conjunctivas, eyelid no trauma, anterior chamber with arcus senilis. Ears: Pinnas intact and no signs of trauma or erythema ear canals clear and no discharge TM no erythema Nose: No discharge, no bleeding. Oropharynx: Mouth normal, tongue pink. pharynx clear,no erythema, tonsils no exudates, no abscesses noted, mucous membrane moist Neck: Supple, non-tender, no thyromegaly, no masses, no JVD, no bruits Breast:Deferred Chest:No tenderness, no crepitus, no paradoxical movement, no retractions Lungs:Clear, well-ventilated, symmetric, no rales, no wheezing, no rhonchi, no stridor, good breath sounds bilaterally Heart: Regular rate, regular rhythm, no murmur, no gallops Vascular: no peripheral edema, Abdomen: Soft, positive bowel sounds, nondistended, no guarding, nontender, no rebound, no masses no hepatomegaly, no splenomegaly, no Lynn's sign, no hernias. Rectal: Deferred Genital: Deferred Neurological: Normal speech, motor function intact, sensory function intact Musculoskeletal: Neck nontender, full range of motion, back nontender, full range of motion, Extremities: nontender, full range of motion Skin: Color pink, dry, no turgor, no rash, no lacerations, no abrasions, no contusions. Hives noted to upper back, low back, low abdomen. Lymphatic: Deferred Results (Laboratory/Radiology) Labs Reviewed?: Yes ED Course ED Course Orders Procedure Category Date Status Time Diphenhydramine Hcl PHA 08/27/24 Logged (Benadryl Cap) 19:00 Famotidine 20mg Tab PHA 08/27/24 Logged (Pepcid 20mg Tab) 19:00 Dexamethasone 4mg/Ml PHA 08/27/24 Logged 1ml Vial (Dexametha 19:00 Current Medications Medications (Trade) Dose Ordered Sig/Carly Route PRN Reason Start Time Stop Time Status Last Admin Dose Admin Dexamethasone Sodium Phosphate (dexaMETHasone 4MG/ML 1ML VIAL) 6 mg ONCE ONCE IM 08/27/24 19:00 08/27/24 19:01 UNV Diphenhydramine HCl (BENAdryl CAP) 25 mg ONCE ONCE PO 08/27/24 19:00 08/27/24 19:01 UNV Famotidine (Pepcid 20mg Tab) 20 mg ONCE ONCE PO 08/27/24 19:00 08/27/24 19:01 UNV Vital Signs Date Time Temp Pulse Resp B/P (MAP) Pulse Ox O2 Delivery O2 Flow Rate FiO2 08/27/24 18:39 97.5 68 18 156/74 98 Room Air* 0 21 08/27/24 18:27 97.5 68 18 158/74 98 Room Air 0 Medical Decision Making MDM The patient Is an 79-year-old female with a history of hypertension who presents to the emergency department with generalized rash that is itching in nature. Reports rash started last night. Patient reports that she has been taking Bactrim for an skin infection in her finger and finished the last medication yesterday. Patient reports that she then developed throat pain and was seen by her primary doctor who tested her for strep and was negative but started her on amoxicillin Which she has not started. Differential diagnosis: Allergic reaction, cellulitis, scribed fever Need for hospitalization: Patient does not meet criteria for hospitalization. There are no social concerns with this patient. DX & DISP Disposition: Discharge Departure Impression: Primary Impression: Acute urticaria Additional Impression: Rash Condition: Stable Scripts Diphenhydramine HCl (Benadryl) 50 Mg Cap 50 MG PO TID PRN for ALLERGIC REACTION for 10 Days, #30 CAP 0 Refills Prov: ARIELLA VILLATORO 08/27/24 Additional Instructions: Please follow up with your primary doctor in 1-2 days. Continue taking Benadryl as needed for the rash. FOLLOW-UP WITH PRIMARY CARE PROVIDER IN 1 TO 2 DAYS. TAKE MEDICATIONS DIRECTED HERE IN THE EMERGENCY ROOM. OKAY TO CONTINUE HOME MEDICATIONS UNLESS OTHERWISE DISCUSSED DURING YOUR VISIT IN THE EMERGENCY ROOM TODAY. RETURN TO YOUR NEAREST EMERGENCY ROOM IF SYMPTOMS WORSEN OR IF THERE IS NO IMPROVEMENT. CALL 911 IF YOU NEED IMMEDIATE ASSISTANCE. TAKE TYLENOL OR MOTRIN [id number] NEEDED AND IF NO CONTRAINDICATIONS ARE PRESENT. INCREASE ORAL HYDRATION. A WOUND CULTURE OR URINE CULTURE WAS ORDERED HERE IN THE EMERGENCY ROOM DEPARTMENT PLEASE FOLLOW-UP WITH PRIMARY CARE PROVIDER AND ADVISE THEM TO GET REPEAT PORTS FROM OUR FACILITY. IF YOU HAD ANY LUZ ELENA WRAP/SPLINTS THAT WERE APPLIED HERE, PLEASE DO NOT REMOVE THEM UNTIL YOU SEE YOUR PRIMARY CARE OR SPECIALTY. Referrals: RENO GAMBINO M.D. (PCP) Time of Disposition: 18:49 I have reviewed the case, and I agree with, Diagnosis and Plan ARIELLA VILLATORO Aug 27, 2024 18:50
[2024-08-27] MEDS: FAMOTIDINE 20MG TAB PO ONE (19:14)
[2024-08-27] MEDS: DiphenhydrAMINE HCL 25 MG CAPSULE PO ONE (19:14)
[2024-08-27] MEDS: dexaMETHasone SOD PHOSPHATE 4 MG/ML 1ML VIAL IM ONE (19:14)
[2024-08-27 19:45] VITALS: BP 148/75; PULSE 69; RESP 18; TEMP 98.2; O2SAT 99
== END 2024-08-27 19:45 | disposition home or self-care (01) ==
LOC: EDH 17:48
DX: L50.9 Urticaria, unspecified (principal); E78.00 Pure hypercholesterolemia, unspecified; F41.9 Anxiety disorder, unspecified; I10 Essential (primary) hypertension; I25.10 Atherosclerotic heart disease of native coronary artery without angina pectoris; Z79.899 Other long term (current) drug therapy; Z90.49 Acquired absence of other specified parts of digestive tract; Z90.710 Acquired absence of both cervix and uterus
CPT/HCPCS: 99283; 96372; J1100; Q0163

== ENCOUNTER 2024-08-29 12:58 | Emergency (ER) | payer OTHER ==
[~2024-08-29] VITALS: Ht 160 cm; Wt 71.7 kg
[~2024-08-29 12:58] MED LIST changes: +DIPH50 PO
--- NOTE | 2024-08-29 13:13 | ERN ---
ED Note History of Present Illness Stated Complaint: NAUSEA,WEAKNESS Chief Complaint: Sore Throat Time Seen by MD: 12:59 Dictation: PATIENT IS A 79-YEAR-OLD FEMALE HERE WITH MULTIPLE COMPLAINTS THAT INCLUDE GENERALIZED BODY WEAKNESS SORES TO HER MOUTH AND TONGUE, NAUSEA, ITCHING WITH A DIFFUSE URTICARIAL RASH SHE HAS HAD ONSET 2-3 DAYS PRIOR TO ARRIVAL. SHE STATES SHE HAS NO CHEST PAIN NO BACK PAIN NO SOB. SHE STATES SHE WAS GIVEN [id number] AND FLUCONAZOLE LAST SATURDAY BY HER DOCTOR FOR A SORE THROAT HOWEVER ALL THEY DID WAS SWABBED HER FOR STREP. SHE STATES SHE HAS NOT FELT ANY BETTER IN HIS HERE FOR ANOTHER OPINION. Allergies: Uncoded Allergies: DIURETICS (Allergy, Unknown, 05/03/24) Home Meds Active Scripts Diphenhydramine HCl (Benadryl) 50 Mg Cap, 50 MG PO TID PRN for ALLERGIC REACTION for 10 Days, #30 CAP 0 Refills Prov:ARIELLA VILLATORO PUMPER GAUGER 08/27/24 Nitrofurantoin Monohyd/M-Cryst (Macrobid 100 mg Capsule) 100 Mg Capsule, 1 CAP PO BID for 7 Days, #14 CAP 0 Refills Prov:KASSANDRA DICKENS MD 05/03/24 Famotidine (Famotidine) 20 Mg Tablet, 20 MG PO BID for 30 Days, #60 TAB Prov:KASSANDRA DICKENS MD 02/12/22 Hydroxyzine Pamoate (Vistaril) 25 Mg Capsule, 25 MG PO BID for 5 Days, #10 CAP Prov:KASSANDRA DICKENS MD 11/07/21 Naproxen (Naproxen) 250 Mg Tablet, 250 MG PO BID for 7 Days, #14 TAB Prov:KASSANDRA DICKENS MD 09/15/21 Famotidine (Famotidine) 20 Mg Tablet, 20 MG PO BID for 30 Days, #60 TAB Prov:KASSANDRA DICKENS MD 09/15/21 Pantoprazole Sodium (Pantoprazole Sodium) 40 Mg Tablet.dr, 40 MG PO bid for for 7 days then daily for 7 Days, #37 TAB Prov:NAUN IBARRA AGACNDemar 03/21/20 Naproxen Sodium (Naproxen Sodium ER) 375 Mg Tbmp.24hr, 375 MG PO BID for 3 Days, #15 TAB.SR 1 Refill Prov:MILLY BOYKIN MD 03/21/20 Reported Medications Amlodipine Besylate (Amlodipine Besylate) 10 Mg Tablet, 10 MG PO DAILY, TAB 03/19/20 Metoclopramide HCl (Metoclopramide HCl) 10 Mg Tablet, 10 MG PO AD, TAB 03/19/20 Multivits-Min/FA/Lycopene/Lut (Centrum Silver Tablet) 1 Each Tablet, 1 EACH PO DAILY, TAB 03/19/20 Losartan Potassium (Losartan Potassium) 50 Mg Tablet, 50 MG PO DAILY, TAB 03/19/20 Mirtazapine (Mirtazapine) 15 Mg Tablet, 15 MG PO HS, TAB 03/19/20 Past Medical History Past Medical History: CAD, Depression, High Cholesterol, Hypertension Additional Past Medical Hx: MENDOZA Surgical History: Hysterectomy, Cholecystectomy Surgical History Other: NODULE REMOVAL FROM THROAT Social History: Negative History: Not Applicable RN Note Reviewed/Agreed w/PFSH: Yes Review of System Dictation CONSTITUTIONAL: NEGATIVE EXCEPT FOR HPI ANXIETY HEAD/FACE: NEGATIVE EXCEPT FOR HPI EENT: NEGATIVE EXCEPT FOR HPI SORE THROAT RESPIRATORY: NEGATIVE EXCEPT FOR HPI GASTROINTESTINAL/ABDOMINAL: NEGATIVE EXCEPT FOR HPI GENITOURINARY: NEGATIVE EXCEPT FOR HPI MUSCULOSKELETAL: NEGATIVE EXCEPT FOR HPI INTEGUMENTARY: NEGATIVE EXCEPT FOR HPI RASH WITH URTICARIA ITCHING NEUROLOGICAL/PSYCH: NEGATIVE EXCEPT FOR HPI HEMATOLOGIC/LYMPHATIC: NEGATIVE EXCEPT FOR HPI ALL SYSTEMS NEGATIVE, EXCEPT NOTED ABOVE. 13 POINT REVIEW OF SYSTEMS ASSESSED AND ALL NEGATIVE EXCEPT FOR ABOVE. Initial Vital Sign VS Vital Signs Date Time Temp Pulse Resp B/P (MAP) Pulse Ox O2 Delivery O2 Flow Rate FiO2 08/29/24 13:05 98.4 72 18 197/96 98 Room Air 0 08/29/24 13:20 21 Physical Exam Dictation VITAL SIGNS REVIEWED GENERAL APPEARANCE: ALERT, ORIENTED X 3, MY ACUTE DISTRESS, WELL DEVELOPED, NOURISHED. HEAD AND FACE: NON-TRAUMATIC. EYES: PERRL, PINK CONJUNCTIVAS, EYELID NO TRAUMA, ANTERIOR CHAMBER WITH ARCUS SENILIS. EARS: PINNAS INTACT AND NO SIGNS OF TRAUMA OR ERYTHEMA EAR CANALS CLEAR AND NO DISCHARGE TM NO ERYTHEMA NOSE: NO DISCHARGE, NO BLEEDING. OROPHARYNX: MOUTH NORMAL, TONGUE PINK, VOICE IS CLEAR PHARYNX CLEAR, MILD PHARYNGEAL ERYTHEMA, TONSILS NO EXUDATES, NO ABSCESSES NOTED, MUCOUS MEMBRANE MOIST NECK: SUPPLE, NON-TENDER, NO THYROMEGALY, NO MASSES, NO JVD, NO BRUITS BREAST:DEFERRED CHEST:NO TENDERNESS, NO CREPITUS, NO PARADOXICAL MOVEMENT, NO RETRACTIONS LUNGS:CLEAR, WELL-VENTILATED, SYMMETRIC, NO RALES, NO WHEEZING, NO RHONCHI, NO STRIDOR, GOOD BREATH SOUNDS BILATERALLY HEART: REGULAR RATE, REGULAR RHYTHM, NO MURMUR, NO GALLOPS VASCULAR: NO PERIPHERAL EDEMA, ABDOMEN: SOFT, POSITIVE BOWEL SOUNDS, NONDISTENDED, NO GUARDING, NONTENDER, NO REBOUND, NO MASSES NO HEPATOMEGALY, NO SPLENOMEGALY, NO BURNS'S SIGN, NO HERNIAS. RECTAL: DEFERRED GENITAL: DEFERRED NEUROLOGICAL: NORMAL SPEECH, MOTOR FUNCTION INTACT, SENSORY FUNCTION INTACT MUSCULOSKELETAL: NECK NONTENDER, FULL RANGE OF MOTION, BACK NONTENDER, FULL RANGE OF MOTION, EXTREMITIES: NONTENDER, FULL RANGE OF MOTION SKIN: COLOR PINK, D DIFFUSE URTICARIAL RASH NO ANGIOEDEMA LYMPHATIC: DEFERRED Results (Laboratory/Radiology) Laboratory/Radiology Laboratory Tests Test 08/29/24 13:20 White Blood Count 7.9 K/uL (4.8-10.8) Red Blood Count 4.65 MIL/uL (4.00-5.50) Hemoglobin 15.3 g/dL (12.0-16.0) Hematocrit 41.9 % (36-48) Mean Corpuscular Volume 90.1 fL (79-99) Mean Corpuscular Hemoglobin 32.9 pg (27.0-33.0) Mean Corpuscular Hemoglobin Concent 36.5 g/dL (32.0-36.0) H Red Cell Distribution Width 12.4 % (11.0-15.5) Platelet Count 236 K/uL (130-400) Mean Platelet Volume 8.0 fL (7.5-10.5) Immature Granulocyte % (Auto) 0.5 % (0-1) Neutrophils (%) (Auto) 67.1 % (40.0-77.0) Lymphocytes (%) (Auto) 23.2 % (21.0-51.0) Monocytes (%) (Auto) 7.8 % (3.0-13.0) Eosinophils (%) (Auto) 1.0 % (0.0-8.0) Basophils (%) (Auto) 0.4 % (0.0-5.0) Neutrophils # (Auto) 5.3 K/uL (1.8-7.7) Lymphocytes # (Auto) 1.8 K/uL (1.0-4.8) Monocytes # (Auto) 0.6 K/uL (0.1-1.0) Eosinophils # (Auto) 0.08 K/uL (0.00-0.70) Basophils # (Auto) 0.03 K/uL (0.00-0.20) Absolute Immature Granulocyte (auto 0.04 K/uL (0-1) Nucleated Red Blood Cells 0.0 % (0.0-0.19) Red Blood Cell Morphology See comments Sodium Level 126 mmol/L (136-145) L Potassium Level 4.1 mmol/L (3.5-5.1) Chloride Level 93 mmol/L (101-111) L Carbon Dioxide Level 26 mmol/L (21-32) Blood Urea Nitrogen 19 mg/dL (7-18) H Creatinine 0.5 mg/dL (0.5-1.0) Glomerular Filtration Rate Calc 95 mL/min (>90) Random Glucose 107 mg/dL (70-105) H Total Calcium 8.7 mg/dL (8.5-10.1) Troponin I High Sensitivity 11 ng/L (4-50) Labs Reviewed?: Yes EKG: (+) NSR EKG Comment: EKG NORMAL SINUS RHYTHM/HEART RATE 66/AXIS NORMAL/NO ECTOPY ED Course ED Course Orders Procedure Category Date Status Time Dexamethasone 4mg/Ml PHA 08/29/24 Complete 1ml Vial (Dexametha 13:30 Diphenhydramine Hcl PHA 08/29/24 Complete (Benadryl Cap) 13:30 Famotidine 20mg Tab PHA 08/29/24 Complete (Pepcid 20mg Tab) 13:30 Cbc With Differential LAB 08/29/24 Complete 13:07 Basic Metabolic Panel LAB 08/29/24 Complete 13:07 Troponin I High LAB 08/29/24 Complete Sensitivity 13:11 12 Lead Ekg Tracing- EKG 08/29/24 Complete Technical 13:11 Clonidine Hcl 0.1 Mg PHA 08/29/24 Complete Tablet (Catapres 0. 13:30 Current Medications Medications (Trade) Dose Ordered Sig/Carly Route PRN Reason Start Time Stop Time Status Last Admin Dose Admin Clonidine HCl (CATApres 0.1 mg TAB) 0.1 mg ONCE ONCE PO 4/5/25 13:30 08/29/24 13:31 DC 08/29/24 13:37 Dexamethasone Sodium Phosphate (dexaMETHasone 4MG/ML 1ML VIAL) 8 mg ONCE ONCE IM 08/29/24 13:30 08/29/24 13:31 DC 08/29/24 13:38 Diphenhydramine HCl (BENAdryl CAP) 25 mg ONCE ONCE PO 08/29/24 13:30 08/29/24 13:31 DC 08/29/24 13:37 Famotidine (Pepcid 20mg Tab) 20 mg ONCE ONCE PO 08/29/24 13:30 08/29/24 13:31 DC 08/29/24 13:38 Vital Signs Date Time Temp Pulse Resp B/P (MAP) Pulse Ox O2 Delivery O2 Flow Rate FiO2 08/29/24 13:37 71 197/96 08/29/24 13:20 98.2 72 16 197/96 98 Room Air* 0 21 08/29/24 13:05 98.4 72 18 197/96 98 Room Air 0 1500/PATIENT STATES SHE FEELS IMPROVED AFTER TREATMENT. BLOOD PRESSURE IS 142/82 AFTER TREATMENT WITH CLONIDINE. DISCHARGED HOME WITH DIAGNOSIS OF UNCONT ROLLED HYPERTENSION AND ALLERGIC REACTION WITH PRURITUS. PATIENT TOLD TO SEE HER DOCTOR SATURDAY WITHOUT FAIL FOR FOLLOW UP HEART Score Response (Comments) Value History: Low suspicion (0) 0 Age: > 65yrs (+2) 2 Risk Factors: 1-2 risk factors (+1) 1 Initial Troponin: Normal limit (0) 0 Total 3 Medical Decision Making MDM MDM: DIFFERENTIAL DIAGNOSIS: ACS/AMI/ALLERGIC REACTION/URTICARIA/UNCONTROLLED HYPERTENSION/ELECTROLYTE IMBALANCE RATIONALE: TESTS CONSIDERED AND ORDERED SECONDARY TO SHARED DECISION MAKING INCLUDE: EKG/LABS PREVIOUS OUTSIDE RECORDS REVIEWED: OLD ER VISITS. RISK OF COMPLICATION AND/OR MORBIDITY OR MORTALITY OF PATIENT MANAGEMENT: NONE MEDICATIONS-PER MEDICATION RECONCILIATION NEED FOR HOSPITALIZATION: PATIENT DOES NOT MEET CRITERIA FOR HOSPITALIZATION. NO NEED FOR EMERGENCY MAJOR/MINOR SURGERY: NO THERE ARE NO SOCIAL CONCERNS WITH THIS PATIENT. PRESCRIPTION DRUG MANAGEMENT MEDROL DOSEPAK/DIPHENHYDRAMINE PRESCRIPTIONS WILL INCLUDE SYMPTOMATIC CARE PATIENT'S PRIOR EXTERNAL MEDICAL RECORDS FROM OTHER ER VISITS WERE REVIEWED BY ME INDICATED. PRIOR TESTING AND RESULTS FROM PREVIOUS VISITS WERE REVIEWED. PRIOR TESTS WERE TAKEN INTO ACCOUNT WITH MEDICAL DECISION MAKING AND RESOURCE UTILIZATION, INDEPENDENT HISTORIAN/HISTORIANS WERE USED TO OBTAIN COMPLETE MEDICAL HISTORY. I INDEPENDENTLY INTERPRETED THE TEST THAT WERE PERFORMED, RESULTS WERE REVIEWED BY ME AND CONSIDERED FINDINGS ON RADIOLOGY IF ORDERED. MEDICAL MANAGEMENT AND EXAMINATION INTERPRETATION DISCUSSIONS WERE HAD BY ME WITH OTHER QUALIFIED HEALTHCARE PROFESSIONALS INDICATED FOR THE PATIENT'S CARE. DX & DISP Disposition: Discharge Departure Impression: Primary Impression: Acute urticaria Additional Impressions: Uncontrolled hypertension, Anxiety, Hyponatremia Condition: Stable Scripts Methylprednisolone (Medrol) 4 Mg Tab.ds.pk 1 TAB PO AD for 6 Days, #21 TAB 0 Refills 6 on day 1 then reduce by one tablet daily until gone Prov: JESSICA NDIAYE NP 08/29/24 Additional Instructions: FOLLOW-UP WITH PRIMARY CARE PROVIDER IN 1 TO 2 DAYS. TAKE MEDICATIONS DIRECTED HERE IN THE EMERGENCY ROOM. OKAY TO CONTINUE HOME MEDICATIONS UNLESS OTHERWISE DISCUSSED DURING YOUR VISIT IN THE EMERGENCY ROOM TODAY. RETURN TO YOUR NEAREST EMERGENCY ROOM IF SYMPTOMS WORSEN OR IF THERE IS NO IMPROVEMENT. CALL 911 IF YOU NEED IMMEDIATE ASSISTANCE. TAKE TYLENOL OR MOTRIN [id number] NEEDED AND IF NO CONTRAINDICATIONS ARE PRESENT. INCREASE ORAL HYDRATION. A WOUND CULTURE OR URINE CULTURE WAS ORDERED HERE IN THE EMERGENCY ROOM DEPARTMENT PLEASE FOLLOW-UP WITH PRIMARY CARE PROVIDER AND ADVISE THEM TO GET REPEAT PORTS FROM OUR FACILITY. IF YOU HAD ANY LUZ ELENA WRAP/SPLINTS THAT WERE APPLIED HERE, PLEASE DO NOT REMOVE THEM UNTIL YOU SEE YOUR PRIMARY CARE OR SPECIALTY. CONTINUE BENADRYL FROM YOUR VISIT TO THE EMERGENCY ROOM TWO DAYS AGO 25 MG EVERY 6 HOURS FOR THREE MORE DOSES. TAKE MEDROL DOSEPAK DIRECTED UNTIL GONE. STRONGLY SUGGEST SEEING YOUR PRIMARY CARE DOCTOR ON SATURDAY FOR FOLLOW UP AND MANAGEMENT. INCREASE SALT TO YOUR DIET. Referrals: RENO GAMBINO M.D. (PCP) Time of Disposition: 15:02 I have reviewed the case, and I agree with, Diagnosis and Plan JESSICA NDIAYE NP Aug 29, 2024 13:13
[2024-08-29 13:28] LABS: BASOPHILS # (AUTO) 0.03 K/uL (0.00-0.20); BASOPHILS % (AUTO) 0.4 % (0.0-5.0); EOSINOPHILS # (AUTO) 0.08 K/uL (0.00-0.70); HEMATOCRIT 41.9 % (36-48); IMMATURE GRANULOCYTE ABSOLUTE 0.04 K/uL (0-1); LYMPHOCYTES # (AUTO) 1.8 K/uL (1.0-4.8); LYMPHOCYTES % (AUTO) 23.2 % (21.0-51.0); MEAN CORPUSCULAR HEMOGLOBIN 32.9 pg (27.0-33.0); MEAN CORPUSCULAR HGB CONC 36.5 g/dL (32.0-36.0); MEAN CORPUSCULAR VOLUME 90.1 fL (79-99); MONOCYTES # (AUTO) 0.6 K/uL (0.1-1.0); MONOCYTES % (AUTO) 7.8 % (3.0-13.0); NEUTROPHILS # (AUTO) 5.3 K/uL (1.8-7.7); NEUTROPHILS % (AUTO) 67.1 % (40.0-77.0); PLATELET COUNT (AUTO) 236 K/uL (130-400); RED BLOOD CELL COUNT(AUTO) 4.65 MIL/uL (4.00-5.50); RED CELL DISTRIBUTION WIDTH 12.4 % (11.0-15.5); WHITE BLOOD COUNT (AUTO) 7.9 K/uL (4.8-10.8)
[2024-08-29] MEDS: DiphenhydrAMINE HCL 25 MG CAPSULE PO ONE (13:37)
[2024-08-29] MEDS: cloNIDine HCL 0.1 MG TABLET PO ONE (13:37)
[2024-08-29] MEDS: FAMOTIDINE 20MG TAB PO ONE (13:38)
[2024-08-29] MEDS: dexaMETHasone SOD PHOSPHATE 4 MG/ML 1ML VIAL IM ONE (13:38)
[2024-08-29 13:42] LABS: CREATININE 0.5 mg/dL (0.5-1.0); POTASSIUM 4.1 mmol/L (3.5-5.1)
--- NOTE | 2024-08-29 13:51 | EKG ---
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
[2024-08-29 14:57] VITALS: BP 142/82; PULSE 62; RESP 16; TEMP 98.3; O2SAT 98
[2024-08-29] MEDS ORDERED: METH4TAB3 PO (15:03)
== END 2024-08-29 15:15 | disposition home or self-care (01) ==
LOC: EDH 12:58
DX: L50.9 Urticaria, unspecified (principal); F41.9 Anxiety disorder, unspecified; E87.1 Hypo-osmolality and hyponatremia; F32.A Depression, unspecified; E78.00 Pure hypercholesterolemia, unspecified; G47.33 Obstructive sleep apnea (adult) (pediatric); I10 Essential (primary) hypertension; I25.10 Atherosclerotic heart disease of native coronary artery without angina pectoris; Z79.899 Other long term (current) drug therapy; Z90.49 Acquired absence of other specified parts of digestive tract; Z90.710 Acquired absence of both cervix and uterus
CPT/HCPCS: 99284; 84484; 80048; 85025; 36415; 96372; 93005; J1100; Q0163

== ENCOUNTER → 2025-01-12 | Outpatient (CLI) | payer OTHER ==
[~2025-01-12] MED LIST changes: +METH4TAB3 PO
[2025-01-12 15:37] LABS: IMMATURE GRANULOCYTE ABSOLUTE 0.01 K/uL (0-1); NUCLEATED RED BLOOD CELLS 0.0 % (0.0-0.19); PLATELET COUNT (AUTO) 239 K/uL (130-400); RED BLOOD CELL COUNT(AUTO) 4.49 MIL/uL (4.00-5.50); RED CELL DISTRIBUTION WIDTH 12.4 % (11.0-15.5); WHITE BLOOD COUNT (AUTO) 6.8 K/uL (4.8-10.8)
[2025-01-12 15:48] LABS: INR 0.98 (0.85-1.15)
[2025-01-12 16:16] LABS: ASPARTATE AMINOTRANSFERASE 19.0 U/L (10-37); CREATININE 0.7 mg/dL (0.5-1.0); GLOMERULAR FILTR. RATE CALC 87.0 mL/min (>90); GLUCOSE,RANDOM 92.0 mg/dL (70-105); SODIUM SERUM 141.0 mmol/L (136-145); TOTAL PROTEIN, SERUM 7.5 g/dL (6.0-8.3); UREA NITROGEN, BLOOD 13.0 mg/dL (7-18)
== END | disposition home or self-care (01) ==
LOC: LAB 14:55
PROVIDERS: ATTEND Internal Medicine Gastroenterology
DX: Q44.6 Cystic disease of liver (principal); R10.10 Upper abdominal pain, unspecified; E78.2 Mixed hyperlipidemia
CPT/HCPCS: 36415; 80053; 82105; 85025; 85610

== ENCOUNTER → 2025-01-20 | Outpatient (CLI) | payer OTHER ==
[~2025-01-20] MED LIST changes: +IOHEXOL 350 MG/ML 100ML INFUS..BTL IV ONE
--- NOTE | 2025-01-21 14:59 | HMCIMG ---
EXAM: CT Abdomen with and without IV contrast CLINICAL HISTORY: CYSTIC DISEASE OF LIVER TECHNIQUE: Axial computed tomography images of the abdomen with and without intravenous contrast. CONTRAST: with and without intravenous contrast. COMPARISON: None provided. FINDINGS: LUNG BASES: The lung bases appear clear. No pleural effusions are seen. LIVER: A tiny calcified granuloma is seen in segment 4a of the liver, measuring approximately 1-2 mm. Few hypodense cystic lesions are seen in segment 2 and segment 4b of the left lobe of the liver. The lesions do not show any enhancement, likely suggestive of simple hepatic cysts. The largest measures approximately 1.7 x 1.4 cm in segment 2 of the left lobe. Liver size and outline are normal. No evidence of fatty infiltration or cirrhosis. GALLBLADDER AND BILE DUCTS: Post cholecystectomy status with surgical clips in the gallbladder fossa. No pericholecystic collection or abnormality in the gallbladder bed is seen. Mild prominence of the common bile duct (CBD) with a maximum diameter of approximately 6 mm in the mid CBD, likely secondary to post-cholecystectomy status. No intrahepatic biliary dilatation or choledocholithiasis. PANCREAS: Unremarkable. SPLEEN: Unremarkable. ADRENAL GLANDS: Unremarkable. KIDNEYS: The kidneys appear within normal limits. There is no hydronephrosis or hydroureter. No urinary calculi are seen. STOMACH AND BOWEL: Unremarkable appearance of the stomach and bowel. No evidence of bowel obstruction. No evidence suggesting enteritis or colitis. PERITONEUM: No free fluid. No free air. LYMPH NODES: No lymphadenopathy is evident. VASCULATURE: No evidence of abdominal aortic aneurysm. BONES: Degenrative changes present. No aggressive appearing osseous lesion. No acute osseous pathology is evident. IMPRESSION: Few simple hepatic cysts, largest measuring 1.7 x 1.4 cm in segment 2. No suspicious hepatic lesions. Post-cholecystectomy status with mild common bile duct prominence, likely secondary to the cholecystectomy. /[place]
== END | disposition home or self-care (01) ==
LOC: RAH 09:48
PROVIDERS: ATTEND Internal Medicine Gastroenterology
DX: K76.89 Other specified diseases of liver (principal); K91.5 Postcholecystectomy syndrome; M47.816 Spondylosis without myelopathy or radiculopathy, lumbar region
CPT/HCPCS: 74170; Q9967